=== PATIENT | female | born 1975 | race Two or more races ===

== ENCOUNTER 2022-02-07 05:37 | Day surgery (SDC) | payer OTHER ==
[~2022-02-07] VITALS: Ht 157.5 cm; Wt 54.0 kg
[2022-02-07] MEDS ORDERED: IBU600 MG PO (08:36)
== END 2022-02-07 10:35 | disposition home or self-care (01) ==
LOC: CIR.AMB 05:37
PROVIDERS: ATTEND Obstetrics & Gynecology Gynecology
DX: D06.9 Carcinoma in situ of cervix, unspecified (principal); N84.0 Polyp of corpus uteri; R10.2 Pelvic and perineal pain; Z86.16 Personal history of COVID-19; F17.210 Nicotine dependence, cigarettes, uncomplicated; Z20.822 Contact with and (suspected) exposure to COVID-19